=== PATIENT | female | born 1970 | race Caucasian/White ===

== ENCOUNTER 2021-08-29 15:58 | Emergency (ER) | payer OTHER ==
--- NOTE | 2021-08-29 16:53 | XR ---
EXAMINATION TYPE: XR chest 2V DATE OF EXAM: 08/29/2021 COMPARISON: NONE HISTORY: 50 years Female. STUDY INDICATION GIVEN: sob,cough . TECHNIQUE: Frontal lateral chest radiograph IMPRESSION: Patchy opacities are seen in the left lower lobe. Concerning for pneumonia. There is bilateral perihilar opacities which could represent vessel en face versus lymphadenopathy. C linical correlation recommended, obtain CT of the chest with contrast as clinically indicated. No pneumothorax or pleural effusion. The cardiac mediastinal silhouette is normal. No acute osseous abdomen noted.
[2021-08-29] MEDS ORDERED: IBUPROFEN 600 MG TAB PO STA (17:35)
[2021-08-29] MEDS ORDERED: ACETAMINOPHEN TAB 500 MG TAB PO STA (17:35)
--- NOTE | 2021-08-29 18:21 | ED ---
URI HPI - General Chief Complaint: Upper Respiratory Infection Stated Complaint: Headache Time Seen by Provider: 08/29/21 17:12 Source: patient, RN notes reviewed Mode of arrival: ambulatory Limitations: no limitations - History of Present Illness Initial Comments: Patient is a 42-year-old female presenting to emergency Department with complaints of a cough, fever, headache over the past couple days. She states her grandchild was diagnosed with RSV and she feels like she has similar symptoms. She also admits to chills, no appetite. She denies any nausea or vomiting, no diarrhea, no abdominal pain. She denies any chest pain, some mild shortness of breath she tries due to much throughout the day. She admits to history of mild asthma. Her did go get tested for Covid today regarding her symptoms, he was negative. He denies getting the Covid vaccine. She has no further complaints. Patient did arrive febrile 101, tachycardia at 118, rest of vitals within normal limits. - Related Data Home Medications Medication Instructions Recorded Confirmed Mgshyen-Qxbl-Fjly [id number] 2 tab PO Q4HR PRN 08/29/21 08/29/21 [Excedrin] Pseudoephedrine [Sudafed] 30 mg PO Q4H PRN 08/29/21 08/29/21 Previous Rx's Medication Instructions Recorded Albuterol Inhaler [Ventolin Hfa 1 puff INHALATION RT-TID PRN #8 gm 08/29/21 Inhaler] Azithromycin [Zithromax Z-pack (6 0 mg PO DIRECTED #6 tab 08/29/21 tabs)] predniSONE 50 mg PO DAILY #5 tab 08/29/21 Allergies Allergy/AdvReac Type Severity Reaction Status Date / Time amoxicillin Allergy Rash/Hives Verified 08/29/21 18:06 Penicillins Allergy Rash/Hives Verified 08/29/21 18:06 Review of Systems ROS Statement: Those systems with pertinent positive or pertinent negative responses have been documented in the HPI. ROS Other: All systems not noted in ROS Statement are negative. Past Medical History Past Medical History: No Reported History History of Any Multi-Drug Resistant Organisms: None Reported Past Surgical History: No Surgical Hx Reported Past Psychological History: No Psychological Hx Reported Smoking Status: Current some day smoker Past Alcohol Use History: None Reported Past Drug Use History: None Reported General Exam - General Exam Comments Initial Comments: GENERAL: Patient is well-developed and well-nourished. Patient is nontoxic and in no acute distress. HEAD: Atraumatic, normocephalic. EYES: Pupils equal round and reactive to light, extraocular movements intact, sclera anicteric, conjunctiva are normal. Eyelids were unremarkable. ENT: TMs normal, nares patent, oropharynx clear without exudates. Moist mucous membranes. NECK: Normal range of motion, supple without lymphadenopathy or JVD. LUNGS: Unlabored respirations. Breath sounds clear to auscultation bilaterally and equal. No wheezes rales or rhonchi. HEART: Slightly tachycardia rate and rhythm without murmurs, rubs or gallops. ABDOMEN: Soft, nontender, normoactive bowel sounds. No guarding, no rebound. No masses appreciated. : Deferred MUSCULOSKELETAL: Normal extremities with adequate strength and normal range of motion, no pitting or edema. No clubbing or cyanosis. NEUROLOGICAL: Patient is alert and oriented x 3. SKIN: Warm, Dry, normal turgor, no rashes or lesions noted. Limitations: no limitations Course Vital Signs 08/29/21 16:32 Temperature 101.0 F H Pulse Rate 118 H Respiratory 19 Rate Blood Pressure 121/74 O2 Sat by Pulse 96 Oximetry Medical Decision Making - Medical Decision Making Patient is a 50-year-old female presenting with a fever, cough, upper respiratory symptoms over the past 2-3 days. She is arrive febrile, slightly tachycardia, rest of vitals were normal. Rapid Covid is negative. There are patchy opacities in the left lower lobe, concerning for pneumonia. I discussed these findings with the patient. Patient has had pneumonia many years ago, she states that this does feel similar. However start her on antibiotic, steroids and an inhaler. She is agreeable to this plan of care and she is stable for discharge. She'll follow up with her primary care. Return parameters were discussed with her and she verbalized understanding. - Lab Data Lab Results 08/29/21 Range/Units 16:38 Coronavirus (PCR) Not Detected (Not Detectd) Disposition Clinical Impression: Pneumonia Disposition: HOME SELF-CARE Condition: Stable Instructions (If sedation given, give patient instructions): Pneumonia (ED) Additional Instructions: Please return to the Emergency Department if symptoms worsen or any other concerns. Take medications as prescribed. Continue with Tylenol and/or Motrin for fever control. Increase your fluids. Follow up with your primary care. Prescriptions: predniSONE 50 mg PO DAILY #5 tab Albuterol Inhaler [Ventolin Hfa Inhaler] 1 puff INHALATION RT-TID PRN #8 gm PRN Reason: Shortness Of Breath Azithromycin [Zithromax Z-pack (6 tabs)] 0 mg PO DIRECTED #6 tab Is patient prescribed a controlled substance at d/c from ED?: No Referrals: None,Stated [Primary Care Provider] - 1-2 days Time of Disposition: 18:20
[2021-08-29 18:26] VITALS: BP 126/78; PULSE 98; RESP 18; TEMP 99
== END 2021-08-29 18:25 | disposition home or self-care (01) ==
LOC: EC 15:58
DX: J18.9 Pneumonia, unspecified organism (principal); F17.200 Nicotine dependence, unspecified, uncomplicated; Z79.82 Long term (current) use of aspirin; Z79.52 Long term (current) use of systemic steroids; Z79.51 Long term (current) use of inhaled steroids; Z79.899 Other long term (current) drug therapy; Z20.822 Contact with and (suspected) exposure to COVID-19
CPT/HCPCS: 71046; 87635; 99284

== ENCOUNTER → 2022-02-01 | Outpatient (CLI) | payer OTHER ==
--- NOTE | 2022-02-01 10:22 | XR ---
EXAMINATION TYPE: XR lumbar spine 2 or 3V DATE OF EXAM: 02/01/2022 CLINICAL HISTORY: Low back pain. TECHNIQUE: Frontal and lateral images of the lumbar spine are obtained. COMPARISON: None FINDINGS: There are 5 lumbar type vertebral bodies identified. Bilateral pars defect L5 level with g rade 1 anterolisthesis L5 on S1 measured 4 to 5 mm. Mild disc space narrowing L5-S1 level. Vertebral body heights are maintained. Mild multilevel anterior spurring. Overlying soft tissue is unremarkable . IMPRESSION: As above.
--- NOTE | 2022-02-05 10:13 | MM ---
Reason for exam: screening (asymptomatic). Baseline mammogram. History: Took hormonal contraceptives for 1 year beginning at age 17. Physical Findings: A clinical breast exam by your physician is recommended on an annual basis and results should be correlated with mammographic findings. MG Screening Mammo w CAD Bilateral CC and MLO view(s) were taken. There are scattered fibroglandular densities. Finding: There is a 5 mm circumscribed oval mass in the inner quadrant, anterior position of the right breast. Focal asymmetry 6mm middle depth outer quadrant. ASSESSMENT: Incomplete: need additional imaging evaluation, BI-RAD 0 RECOMMENDATION: Special view mammogram and ultrasound of the right breast. [facility] will attempt to contact patient to return for supplemental views and ultrasound.
== END | disposition home or self-care (01) ==
LOC: RADMAMWWP 09:11
PROVIDERS: ATTEND Internal Medicine
DX: Z12.31 Encounter for screening mammogram for malignant neoplasm of breast (principal); M43.17 Spondylolisthesis, lumbosacral region; M51.37 Other intervertebral disc degeneration, lumbosacral region
CPT/HCPCS: 72100; 77067

== ENCOUNTER → 2022-02-08 | Outpatient (CLI) | payer OTHER ==
--- NOTE | 2022-02-08 10:20 | MM ---
Reason for exam: additional evaluation requested from abnormal screening. Last mammogram was performed less than 1 month ago. History: Took hormonal contraceptives for 1 year beginning at age 17. Physical Findings: A clinical breast exam by your physician is recommended on an annual basis and results should be correlated with mammographic findings. MG Work Up Mamm w CAD RT Spot compression CC, spot compression MLO, and LM view(s) were taken of the right breast. Prior study comparison: February 01, 2022, bilateral MG screening mammo w CAD. There are scattered fibroglandular densities. Finding: There is a 5 mm equal density (isodense), circumscribed round mass located 5 cm from the nipple in the upper inner quadrant, anterior position of the right breast. ASSESSMENT: Incomplete: need additional imaging evaluation, BI-RAD 0 RECOMMENDATION: Ultrasound of the right breast.
--- NOTE | 2022-02-08 10:34 | USB ---
Reason for exam: additional evaluation requested from abnormal screening. History: Took hormonal contraceptives for 1 year beginning at age 17. Physical Findings: A clinical breast exam by your physician is recommended on an annual basis and results should be correlated with mammographic findings. US Breast Workup Limited RT Right limited breast ultrasound including focal area of concern, retroareolar and axilla demonstrates a 0.5 x 0.4 x 0.3cm mixed lesion too small to characterize at 2 o'clock, 3cm from nipple, questionable node. Scanned 2-6 o'clock. ASSESSMENT: Probably benign, BI-RAD 3 RECOMMENDATION: Follow-up diagnostic mammogram and ultrasound of the right breast in 6 months.
== END | disposition home or self-care (01) ==
LOC: RADMAMWWP 08:32
PROVIDERS: ATTEND Internal Medicine
DX: R92.8 Other abnormal and inconclusive findings on diagnostic imaging of breast (principal)
CPT/HCPCS: 77065

== ENCOUNTER → 2022-02-18 | Outpatient (CLI) | payer OTHER ==
--- NOTE | 2022-02-19 04:41 | MR ---
EXAMINATION TYPE: MR lumbar spine wo con DATE OF EXAM: 02/18/2022 COMPARISON: Back pain HISTORY: Low back pain that radiates down both legs. Multiplanar multiecho imaging of the lumbar spine without contrast. The vertebra have fairly normal alignment. Disc spaces are fairly normal. Spinal canal appears large. There is no spinal stenosis. There is no lumbar paraspinal mass. The neural foramina are widely chairez nt. Facet joints are intact. There is apparent L5 spondylolysis with a minimal L5-S1 spondylolisthesi s. The remainder of the exam is unremarkable. IMPRESSION: There is L5 spondylolysis with minimal L5-S1 spondylolisthesis of 4 mm and not changed compared to [facility] spine x-ray of 02/01/2022. No spinal stenosis. No lumbar disc herniation.
== END | disposition home or self-care (01) ==
LOC: RADMRIMAIN 16:25
PROVIDERS: ATTEND Internal Medicine
DX: M43.17 Spondylolisthesis, lumbosacral region (principal)
CPT/HCPCS: 72148

== ENCOUNTER → 2023-01-30 | Outpatient (CLI) | payer OTHER ==
[2023-01-30 20:25] LABS: Basophils # (A) 0.09 X 10*3/uL (0.00-0.10); Eosinophils # (A) 0.34 X 10*3/uL (0.04-0.35); Eosinophils % (A) 3.8 %; HCT 45.9 % (37.2-46.3); HGB 14.3 g/dL (12.0-15.0); Immature Grans, Automated 0.6 %; Lymphocytes # (A) 3.48 X 10*3/uL (0.90-5.00); Lymphocytes % (A) 38.8 %; MCH 28.6 pg (27.0-32.0); MCHC 31.2 g/dL (32.0-37.0); MCV 91.8 fL (80.0-97.0); Mean Platelet Volume 13.1 fL (9.5-12.2); Monocytes # (A) 0.52 X 10*3/uL (0.20-1.00); Monocytes % (A) 5.8 %; NRBC Per 100 WBC 0 /100 WBCS (0.0-0.0); Neutrophils # (A) 4.48 X 10*3/uL (1.80-7.70); Platelet Count 211 X 10*3/uL (140-440); RDW 14.5 % (11.5-14.5); WBC 8.96 X 10*3/uL (4.50-10.00)
[2023-01-30 23:36] LABS: Potassium 4.2 mmol/L (3.5-5.5)
== END | disposition home or self-care (01) ==
LOC: LABPAT 11:32
PROVIDERS: ATTEND Orthopaedic Surgery
DX: Z01.818 Encounter for other preprocedural examination (principal); I23.2 Ventricular septal defect as current complication following acute myocardial infarction; M23.92 Unspecified internal derangement of left knee; R94.31 Abnormal electrocardiogram [ECG] [EKG]
CPT/HCPCS: 80051; 85025; 93005

== ENCOUNTER 2023-02-06 14:06 | Day surgery (SDC) | payer OTHER ==
--- NOTE | 2023-02-05 22:20 | HP ---
HISTORY AND PHYSICAL DATE OF SURGERY: 02/06/2023. HISTORY OF PRESENT ILLNESS: Clair Shirley is a 52-year-old patient, seen with left knee pain, failing conservative treatment measures. We discussed options. She elected to proceed with left knee arthroscopy. Consent was obtained. PAST MEDICAL HISTORY: Noncontributory. PAST SURGICAL HISTORY: Noncontributory. DAILY MEDICATIONS: None. ALLERGIES: None. SOCIAL HISTORY: She smokes cigarettes. PHYSICAL EVALUATION OF THE LEFT KNEE: Her range of motion is 0-125 degrees. Mild effusion. Tenderness, medial joint line. Positive medial Tita's. Ligaments stable. Hip rotation without pain. Distal neurovascular exam is intact. RADIOGRAPHS: Radiographs of the left knee revealed no osseus abnormality. MRI of left knee revealed an intrasubstance tear medial meniscus. IMPRESSION: Internal derangement of left knee with medial meniscal tear. PLAN: Left knee arthroscopy with partial medial meniscectomy and debridement. MMODL / IJN: [id number] /
[~2023-02-06 14:06] MED LIST: DEXAMETHASONE SOD PHOSPHATE 4 MG/ML 1 ML VIAL IV ONE; HYDROmorphone 0.5 MG/0.5 ML SYRINGE IVP PRN; LACTATED RINGERS 1,000 ML IV SCH; LIDOCAINE 1% (10MG/ML) FOR IV START INTRADERMA PRN; ONDANSETRON 4 MG/2 ML VIAL IVP PRN
[2023-02-06] MEDS ORDERED: LIDOCAINE 2% INJ 20 MG/ML (2 ML VIAL) ONE (16:42)
[2023-02-06] MEDS ORDERED: PROPOFOL 10 MG/ML 20 ML VIAL IV ONE (16:42)
[2023-02-06] MEDS ORDERED: MIDAZOLAM 2 MG/2 ML VIAL ONE (16:42)
[2023-02-06] MEDS ORDERED: fentaNYL (PF) 50 MCG/ML 2 ML AMP ONE (16:42)
[2023-02-06] MEDS ORDERED: BUPIVACAINE (PF) 0.25% 30 ML VIAL SQ ONE ×2 (16:59→17:07)
--- NOTE | 2023-02-06 17:25 | P.OP ---
Date of Procedure: 02/06/23 Preoperative Diagnosis: Internal derangement left knee Postoperative Diagnosis: 1. Tear medial lateral meniscus left knee 2. 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 Reactive synovitis medial, lateral and suprapatellar compartments left knee Procedure(s) Performed: 1. Arthroscopic partial medial and lateral meniscectomy left knee 2. Arthroscopic chondroplasty lateral tibial plateau left knee 3. Arthroscopic partial synovectomy medial, lateral and suprapatellar compartments left knee Anesthesia: KEVINA, local Surgeon: Warren Kee Estimated Blood Loss (ml): 5 Pathology: none sent Condition: stable Disposition: PACU Indications for Procedure: 52-year-old patient seen with progressive left knee pain. After having treatment options discussed, she elected to proceed with arthroscopy. Operative Findings: See description of procedure Description of Procedure: Patient was taken to the operative suite. Patient underwent a general anesthetic by the department of anesthesia. Patient was given preoperative antibiotics. The left lower extremity was placed in a well-padded arthroscopic leg reynolds. The left leg was prepped and draped in the normal sterile orthopedic fashion. A lateral parapatellar and suprapatellar incision was made. Trochars were inserted. Arthroscopy was initiated. Suprapatellar pouch revealed diffuse thick reactive synovitis. The patellofemoral joint appeared to articulate congruently. There was grade 1 chondral malacia the patella without significant osteochondral tears. The scope was guided into the medial gutter. No loose bodies or plica were identified . The scope was then guided into the medial compartment. A medial parapatellar incision was made. Trocar inserted followed by probe. There was a radial tear involving the posterior horn of the medial meniscus. There was no significant chondromalacia present in the medial compartment. There was some thick reactive synovitis anteriorly. I performed a partial medial meniscectomy getting down to stable meniscal tissue. I performed a partial synovectomy. The residual meniscus was stable. There was good decompression of the synovitis. Scope and probe were then guided into the intercondylar notch. Cruciates were identified, probed and found to be stable. The scope and probe were then guided into lateral compartment. There was a radial tear involving the midbody lateral meniscus. There is an area of grade 1/2 chondromalacia lateral tibial plateau with some osteochondral flap tears present. There was some thick reactive synovitis anteriorly. I performed a partial lateral meniscectomy getting down to stable meniscal tissue. I performed a chondroplasty of the lateral tibial plateau getting down to stable osteochondral tissue. I performed a partial synovectomy decompressing reactive synovitis. The residual meniscus was stable. The residual osteochondral surface appeared stable. There was good decompression of the synovitis. The scope was in guided back into the suprapatellar compartment. I introduced a motorized shaver into the suprapatellar compartment. I performed a partial synovectomy. Shaver was now removed. There was good decompression of the synovitis. I took one more look on the entire knee, no residual debris. Instruments were now removed from the joint. The joint was infiltrated with .25% Marcaine. Steri-Strips were applied to the portal sites. Sterile dressings were applied. The patient was placed into a FRANK hose. No tourniquet was utilized. The patient was awakened, transferred to a bed and taken to recovery stable satisfactory condition.
[2023-02-06 17:27] VITALS: RESP 16; TEMP 97.6
[2023-02-06] MEDS ORDERED: LACTATED RINGERS 1,000 ML IV ONE (17:36)
[2023-02-06] MEDS ORDERED: HYDROcodone/APAP 5-325MG 1 EACH TAB ONE (18:09)
[2023-02-06] MEDS ORDERED: HYDROcodone/APAP 5-325MG 1 EACH TAB PO ONE (18:10)
[2023-02-06 18:24] VITALS: BP 117/76; PULSE 60
== END 2023-02-06 18:40 | disposition home or self-care (01) ==
LOC: OR 14:06
PROVIDERS: ATTEND Orthopaedic Surgery
DX: S83.242A Other tear of medial meniscus, current injury, left knee, initial encounter (principal); S83.282A Other tear of lateral meniscus, current injury, left knee, initial encounter; M65.862 Other synovitis and tenosynovitis, left lower leg; M94.262 Chondromalacia, left knee; X58.XXXA Exposure to other specified factors, initial encounter; F17.210 Nicotine dependence, cigarettes, uncomplicated; K21.9 Gastro-esophageal reflux disease without esophagitis; F12.90 Cannabis use, unspecified, uncomplicated; Z88.0 Allergy status to penicillin; Z90.49 Acquired absence of other specified parts of digestive tract; Z98.890 Other specified postprocedural states; Z79.1 Long term (current) use of non-steroidal anti-inflammatories (NSAID); Z79.899 Other long term (current) drug therapy
CPT/HCPCS: 81025; 29880; J2250; J1100; J0690; J2405; J3010; J2704; J1170; J2001

== ENCOUNTER → 2023-09-29 | Outpatient (CLI) | payer OTHER ==
--- NOTE | 2023-09-29 10:36 | MM ---
Reason for Exam: Clinical finding. Last mammogram was performed 1 year(s) and 8 month(s) ago. Patient History: Menarche at age 12. First Full-Term at age 24. Hormonal Contraceptives for 1 year from age 17 until age 18. Risk Values: Kimberley 5 year model risk: 1.0%. NCI Lifetime model risk: 8.7%. Prior Study Comparison: 02/01/2022 Bilateral Screening Mammogram, [facility]. 02/08/2022 Right Diagnostic Mammogram, [facility]. 02/08/2022 Right Diagnostic Ultrasound, [facility]. Tissue Density: There are scattered fibroglandular densities. Findings: Analyzed By CAD. No evidence for mass or distortion. No suspicious calcifications. Overall Assessment: Negative, BI-RAD 1 Management: Screening Mammogram of both breasts in 1 year. . Results were given to the patient verbally at the time of exam. Patient should continue monthly self-breast exams. A clinical breast exam by your physician is recommended on an annual basis. This exam should not preclude additional follow-up of suspicious palpable abnormalities. Note on Kimberley scores and lifetime risk: 1. A Kimberley score greater than 3% is considered moderate risk. If this is the case, consider specialist referral to assess eligibility for a risk reducing agent. 2. If overall lifetime risk for the development of breast cancer is 20% or higher, the patient may qualify for future screening with alternating mammogram and breast MRI. Electronically signed and approved by: Keith Holly M.D. Radiologis
== END | disposition home or self-care (01) ==
LOC: RADMAMWWP 10:08
PROVIDERS: ATTEND Family Medicine
DX: R92.323 Mammographic fibroglandular density, bilateral breasts (principal)
CPT/HCPCS: 77062; 77066